=== PATIENT | male | born 2000 | race Caucasian/White ===

== ENCOUNTER 2022-10-11 12:34 | Emergency (ER) | payer OTHER, SELFPAY ==
--- NOTE | ~2022-10-11 | XR_ITS ---
EXAMINATION: XR chest 2V 10/11/2022 13:11 INDICATION: Arrhythmia. PROCEDURE: 2 view chest COMPARISON: No prior studies for comparison. FINDINGS: The lungs are clear. The cardiomediastinal silhouette is within normal limits. There are no pleural effusions. There is no pneumothorax suspected. IMPRESSION: 1: NO ACUTE CARDIOPULMONARY DISEASE. Reviewed, dictated and finalized at location L. NLAYER
--- NOTE | 2022-10-11 12:40 | ECG_ITS ---
Measurements Intervals [place] Rate: 167 P: [place]: 0 QRS: 96 QRSD: 111 T: -11 QT: 263 QTc: 438 Interpretive Statements ATRIAL FLUTTER/TACHYCARDIA WITH RAPID VENTRICULAR RESPONSE BORDERLINE RIGHT AXIS DEVIATION [QRS AXIS > 90] INCOMPLETE RIGHT BUNDLE BRANCH BLOCK [90+ ms QRS DURATION, TERMINAL R IN V1/V2, 40+ ms S IN I/aVL/V4/V5/V6] MODERATE ST DEPRESSION [0.05+ mV ST DEPRESSION] ABNORMAL QRS-T ANGLE [QRS-T AXIS DIFFERENCE > 60] ABNORMAL ECG NO PREVIOUS ECG AVAILABLE FOR COMPARISON Electronically Signed On 10-11-2022 14:16:46 [employer] by Eduin Hall M.D.
[2022-10-11 12:41] VITALS: BP 126/87; PULSE 165; RESP 20; TEMP 36.9; O2SAT 100
[2022-10-11 13:09] LABS: Basophils Percent Auto 0.5 % (0.2-1.2); Eosinophils Percent Auto 0.3 % (0-4.4); Hematocrit 50.2 % (42.0-52.0); Hemoglobin 17.7 g/dL (14.0-18.0); Immature Granulocyte Absolute 0.01 K/mm3 (0.00-0.031); Immature Granulocyte Percent A 0.1 % (0-0.5); Lymphocytes Absolute Auto 3.05 K/mm3 (0.9-3.2); Lymphocytes Percent Auto 41.2 % (18.3-44.2); Mean Corpuscular HGB Conc 35.3 g/dl (32-36); Mean Corpuscular Hemoglobin 31.4 pg (26-34); Mean Corpuscular Volume 89.2 fl (80-100); Mean Platelet Volume 10.2 fl (7.4-10.4); Monocytes Absolute Auto 0.7 K/mm3 (0.1-0.6); Monocytes Percent Auto 9.4 % (2.6-8.5); Neutrophils Absolute Auto 3.6 K/mm3 (1.3-6.7); Neutrophils Percent Auto 48.5 % (45.5-73.1); Platelet Count Result 316 k/mm3 (150-375); Red Blood Count 5.63 M/mm3 (4.6-6.20); Red Cell Distribution Width 11.6 % (11.5-14.5); White Blood Count 7.4 K/mm3 (4.5-10.0)
[2022-10-11 13:16] LABS: INR 1.1; Prothrombin Time 13.7 Seconds (11.1-14.7)
[2022-10-11 13:17] LABS: Partial Thromboplastin Time 27.9 SECONDS (22.3-36.8)
[2022-10-11 13:20] LABS: Alanine Aminotransferase 23 U/L (6-50); Albumin Level 5.6 g/dL (3.5-5.1); Alkaline Phosphatase 93 U/L (38-126); Anion Gap 10 mmol/L (8-16); Aspartate Amino Transferase 28 U/L (17-59); Bilirubin,Total 1.1 mg/dL (0.2-1.3); Blood Urea Nitrogen 11 mg/dL (9-20); Calcium 9.6 mg/dL (8.4-10.2); Carbon Dioxide 26 mmol/L (22-30); Chloride 99 mmol/L (98-107); Estimated CRCL calculation 103 ml/min; Estimated Glomerular Filt Rate > 60; Glucose 109 mg/dL (65-110); Lipase 54 U/L (23-300); Potassium 3.4 mmol/L (3.4-5.0); Sodium 135 mmol/L (137-145)
[2022-10-11 13:31] LABS: Troponin I < 0.012 ng/mL (0.000-0.034)
[2022-10-11] MEDS: SODIUM CHLORIDE 0.9% IV 1,000 ML 999 ML IV CONT (14:17)
[2022-10-11] MEDS: LORazepam INJ (*CRX) 2 MG/ML VIAL 0.5 MG IV PUSH (14:28)
--- NOTE | 2022-10-11 14:41 | ECG_ITS ---
Measurements Intervals [place] Rate: 112 P: [place]: 0 QRS: 88 QRSD: 101 T: 43 QT: 354 QTc: 485 Interpretive Statements PROBABLE JUNCTIONAL TACHYCARDIA VERSUS SINUS TACHYCARDIA WITH A PROLONGED FIRST- DEGREE AV BLOCK RIGHT AXIS DEVIATION RSR' ABNORMAL ECG Electronically Signed On 10-12-2022 13:35:24 CIRCUS HAND by Eduin Hall M.D.
[2022-10-11 15:18] LABS: Amphetamine Screen Urine Negative (Negative); Barbiturate Screen Urine Negative (Negative); Benzodiazepines Screen Urine Negative (Negative); Cannabinoid Screen Urine Negative (Negative); Cocaine Screen Urine Negative (Negative); Methadone Screen Urine Negative (Negative); Opiate Screen Urine Negative (Negative); Phencyclidine Screen Urine Negative (Negative)
--- NOTE | 2022-10-11 16:13 | ED.ARRPALP ---
HPI - Arrhythmia/Palpitations General Chief Complaint: Arrhythmia/Palpitations Stated Complaint: palpitations Time Seen by Provider: 10/11/22 13:05 History of Present Illness HPI narrative: Patient is a 22-year-old male who presents to the ER with reports of palpitations. Ongoing for last couple days. Worse in the morning and typically better in the evening. No caffeine use or cigarette smoking. Denies illicit drug use. Symptoms began after being seen in urgent care and being told his blood pressure was slightly elevated. Patient does endorse some anxiety. No history of anxiety disorder. No history of arrhythmia. No family history of heart disease or cardiac anomaly or sudden cardiac at young age. Related Data Allergies Allergy/AdvReac Type Severity Reaction Status Date / Time No Known Allergies Allergy Verified 10/11/22 13:01 Review of Systems Review of Systems: All systems reviewed & are unremarkable except as noted in HPI and below Constitutional: Constitutional: Denies chills, Denies fatigue and Denies fever(s) ENT: Denies nasal congestion and Denies sore throat Cardiovascular: Cardiovascular: Denies chest pain, Reports rapid heart rate and Denies radiating jaw, neck or arm pain Respiratory: Respiratory: Denies cough, Denies dyspnea and Denies wheezing Gastrointestinal: Gastrointestinal: Denies abdominal pain, Denies diarrhea, Denies nausea and Denies vomiting Psychiatric: Psychiatric: Reports anxiety PMFSH Past Medical History Medical History (Updated 10/11/22 @ 16:23 by Trent Braun MD) Healthy adult male Surgical History Surgical History (Updated 10/11/22 @ 16:18 by Trent Braun MD) No history of previous surgery Social History Social History (Updated 10/11/22 @ 16:18 by Trent Braun MD) Smoking status: Never smoker Exam Narrative: GENERAL: Well-appearing, well-nourished, and in no acute distress. HEAD: Normocephalic, atraumatic. EYES: PERRL and EOMI. CHEST: Clear to auscultation. No respiratory distress. HEART: Regular rate and rhythm. Normal peripheral pulses. ABDOMEN: Soft, nontender, nondistended. EXTREMITIES: Normal range of motion. No edema. SKIN: Warm, dry, no rash. NEURO: Alert and oriented x3. PSYCH: Normal mood and affect. Course Course Emergency Course: Patient resting comfortably. Discussed case with Dr. Gallegos. Patient appears to have a first-degree heart block. He does seem to be particularly anxious as well. Patient will be given a event monitor and will follow-up with Dr. Gallegos. Discussed treatment plan. Patient also received some Ativan for home to help with anxiousness. Discussed he may also have an underlying anxiety disorder that may require treatment but we certainly want to rule out any other significant cardiac issue. Patient's mother and father present and supportive. Vital Signs Vital signs: Vital Signs Temperature 98.4 F 10/11/22 12:41 Pulse Rate 165 H 10/11/22 12:41 Respiratory Rate 20 10/11/22 12:41 Blood Pressure 126/87 10/11/22 12:41 Pulse Oximetry 100 10/11/22 12:41 Oxygen Delivery Room Air 10/11/22 12:41 Temperature 98.4 F 10/11/22 12:41 Pulse Rate 165 H 10/11/22 12:41 Respiratory Rate 20 10/11/22 12:41 Blood Pressure 126/87 10/11/22 12:41 Pulse Oximetry 100 10/11/22 12:41 Oxygen Delivery Room Air 10/11/22 12:41 MDM - Arrhythmia/Palpitations Lab Data 10/11/22 12:58 10/11/22 12:58 Labs: Lab Results 10/11/22 10/11/22 10/11/22 Range/Units 12:58 12:58 12:58 WBC 7.4 (4.5-10.0) K/mm3 RBC 5.63 (4.6-6.20) M/mm3 Hgb 17.7 (14.0-18.0) g/dL Hct 50.2 (42.0-52.0) % MCV 89.2 (80-100) fl MCH 31.4 (26-34) pg MCHC 35.3 (32-36) g/dl RDW 11.6 (11.5-14.5) % Plt Count 316 (150-375) k/mm3 MPV 10.2 (7.4-10.4) fl Immature Gran % (Auto) 0.1 (0-0.5) % Neut % (Auto) 48.5 (45.5-73.1) % Lymph % (A
[2022-10-11 17:40] VITALS: BP 111/88; PULSE 100; RESP 16; O2SAT 98
--- NOTE | 2022-10-19 18:16 | PC.NURSE ---
late entry 10/11/22 @1517 ns bolus infused
== END 2022-10-11 17:30 | disposition home or self-care (01) ==
PROVIDERS: Emergency Provider Emergency Medicine
DX: R00.2 Palpitations (principal); F41.9 Anxiety disorder, unspecified; I45.10 Unspecified right bundle-branch block; R94.31 Abnormal electrocardiogram [ECG] [EKG]; R00.0 Tachycardia, unspecified; I48.92 Unspecified atrial flutter
CPT/HCPCS: 36415; 71046; 80053; 80307; 83690; 84484; 85025; 85610; 85730; 93005; 96361; 96374; 99284; J2060; J7030

== ENCOUNTER 2025-01-02 14:19 | Outpatient (CLI) | payer SELFPAY ==
--- NOTE | ~2025-01-02 | US_ITS ---
Ultrasound of the neck CLINICAL HISTORY: Lump TECHNIQUE: Targeted sonographic imaging of the left neck was performed at the area of clinical concer n. FINDINGS: At the area of concern, there is a 9 x 8 x 7 mm reniform lymph node with fatty hilum. No ot her significant mass lesion noted in the region scanned. IMPRESSION: Subcentimeter normal lymph node which corresponds with the area of palpable concern. Reviewed, dictated and finalized at location M. IMPRESSION: Subcentimeter normal lymph node which corresponds with the area of palpable con cern.
== END 2025-01-02 14:20 | disposition home or self-care (01) ==
PROVIDERS: PCP Clinical Nurse Specialist; Visit Provider Clinical Nurse Specialist
DX: R22.1 Localized swelling, mass and lump, neck (principal)
CPT/HCPCS: 76536